=== PATIENT | female | born 1970 | race Caucasian/White ===

== ENCOUNTER → 2018-03-13 16:20 | Outpatient (REF) | payer OTHER, SELFPAY ==
[2018-03-13 18:38] LABS: Basophils # 0.1 K/mm3 (0-0.2); Basophils % 1.6 % (0.1-2.0); Eosinophils # 0.2 K/mm3 (0.0-0.4); Eosinophils % 3.3 % (0.1-12.0); Hematocrit 54.5 % (37.0-47.0); Hemoglobin 17.7 g/dL (12.2-16.2); Lymphocytes # 2.4 K/mm3 (0.7-4.5); Lymphocytes % 33.2 K/mm3 (10-50); Mean Corpuscular HGB Conc 32.4 g/dL (31.8-35.4); Mean Corpuscular Hemoglobin 32.8 pg (27.0-31.2); Mean Platelet Volume 7.8 fl (7.4-10.4); Monocytes # 0.6 K/mm3 (0.1-1.0); Monocytes % 8.7 % (1.7-9.3); Neutrophils # 3.8 K/mm3 (1.8-7.8); Neutrophils % 53.2 % (37.0-80.0); Platelet Count 390 K/mm3 (142-424); Red Cell Distribution Width 12.3 % (11.5-17.5); White Blood Count 7.2 K/mm3 (4.8-10.8)
[2018-03-13 19:23] LABS: Alanine Aminotransferase 21 U/L (12-78); Albumin Level 3.7 gm/dL (3.4-5.0); Albumin/Globulin Ratio 0.9 (1.1-1.8); Alkaline Phosphatase 76 U/L (46-116); Anion Gap 13.1 mEq/L (5-15); Aspartate Amino Transferase 23 U/L (15-37); Bilirubin,Total 0.6 mg/dL (0.2-1.0); Blood Urea Nitrogen 9 mg/dL (7-18); Calcium 9.2 mg/dL (8.5-10.1); Carbon Dioxide 27 mmol/L (21.0-32.0); Chloride 101 mmol/L (98-107); Chol/HDL Ratio 4.7 (1-3.5); Cholesterol 256 mg/dL (140-200); Estimated Glomerular Filt Rate 67 ml/min (>60); GFR (African American) 81 ML/MIN (>60); Globulin 3.9 gm/dl (1.3-3.2); Glucose 85 mg/dL (74-106); HDL Cholesterol 55 mg/dL (29-89); LDL Cholesterol 157 mg/dL (0-130); Potassium 4.1 mmoL/L (3.5-5.1); Sodium 137 mmol/L (136-145); T4 (Thyroxine) 5.8 ug/dl (4.7-13.3); Thyroid Stimulating Hormone 6.45 uIU/ml (0.358-3.740); Total Protein,Serum 7.6 gm/dL (6.4-8.2); Triglycerides 222 mg/dL (30-200); VLDL Cholesterol 44 mg/dL (0-40)
[2018-03-15 16:16] LABS: Vitamin D 25 Hydroxy 27.7 ng/mL (30.0-100.0)
== END ==
LOC: LAB 16:20
PROVIDERS: Visit Provider Physician Assistant
DX: E03.9 Hypothyroidism, unspecified (principal)
CPT/HCPCS: 80053; 80061; 82652; 84436; 84443; 85025

== ENCOUNTER 2021-06-07 09:42 | Emergency (ER) | payer MEDICAID, SELFPAY ==
[2021-06-07 09:45] VITALS: BP 125/86; PULSE 101; RESP 21; TEMP 36.8; O2SAT 98; BMI 20.1
--- NOTE | 2021-06-07 10:04 | HMH.EDUTC ---
[facility] Disposition Clinical Impression: Peritonsillar abscess Disposition: Home, Self-Care Condition on Discharge: Good Instructions: Sore Throat, DI for Peritonsillar Abscess -- Adult Additional Instructions: *Monitor Temp, Over the counter Motrin or Tylenol as directed/as needed Tylenol every 4 hours and Motrin every 6 hours (as long as your family doctor has told you that you can take it) for fever or pain. and straight to ER if unable to lower temp less than 101.0 after medication given *Warm salt water gargles may help to soothe the throat *Throat Lozenges *Warm fluids like tea with honey may help to soothe the throat *Sleep elevated *Humidifier/Vaporizer Take antibiotics as prescribed Start oral steriods tomorrow on 06/08/21 Your throat swab was sent for culture. Those results are typically sent to your primary care. Be sure to follow up in 2-3 days with your family doctor/primary care physician if no improvement so they can review those result and treat if necessary. If you don?t have a primary care doctor, I recommend you get one but in the mean time, you will have to return to a walk in clinic Follow up IMMEDIATELY for new or worsening symptoms or no Noticeable improvement over the next 48-72 hours. 911 for difficulty breathing or swallowing Prescriptions: Amoxicillin/Potassium Clav [Augmentin 875-125 Tablet] 1 tab PO Q12H 10 Days #20 tab Transmission Status: Received by [id number] predniSONE [Prednisone 20mg Tab] 20 mg PO BID #6 tab Transmission Status: Received by [id number] Referrals: Dea Cooper PA [Primary Care Provider] - As needed Sonido Stokes MD [Staff Physician] - Lucy Evans MD [Consulting Physician] - Time of Disposition: 10:43 Medical Decision Making - [place]ay[place] Inquiry Pt receiving controlled substance: No Blayne was queried for this patient: No Vital Signs: 06/07/21 09:45 06/07/21 10:24 Temperature 98.2 F 98.2 F Temperature Source Oral Pulse Rate 101 H Pulse Rate [Right Brachial] 101 H Respiratory Rate 21 21 Blood Pressure 125/86 Blood Pressure [Right Arm] 125/86 Blood Pressure Mean [Right Arm] 99 Blood Pressure Source [Right Arm] Automatic Cuff Blood Pressure Position [Right Arm] Sitting 02 Sat by Pulse Oximetry 98 Oxygen Delivery Method Room Air - Lab Data Lab Results 06/07/21 09:52: Strep Scn Rapid Clinic Negative Orders (Tests/Meds): ED MEDICATIONS Discontinued Medications Generic Name Dose Route Start Last Admin Trade Name Raul PRN Reason Stop Dose Admin Ceftriaxone Sodium 1 gm 06/07/21 10:11 06/07/21 10:23 Ceftriaxone 1gm Vial IM 06/07/21 10:12 1 gm ONCE ONE Administration Protocol Lidocaine HCl 0 ml 06/07/21 10:11 06/07/21 10:23 Lidocaine 1% 5ml Pf Vial IM 06/07/21 10:12 2.1 ml ONCE ONE Administration Methylprednisolone Sodium Succinate 125 mg 06/07/21 10:08 06/07/21 10:24 Methylprednisolone Sod Succ 125mg Vial IM 06/07/21 10:09 125 mg ONCE ONE Administration ORDERS Category Date Time Status Strep Screen Confirmation Stat Micro 06/07/21 09:52 Received Medical Decision Narrative: Discussed transfer to the ED for further evaluation and treatment and patient declined patient agreed to treatment with IM Solu Medrol and Rocephin and will Dc home with Augmentin 875 BID and Prednisone and have patient follow up with PCP or ENT to call tomorrow to get appointment to monitor for improvement Patient able to drink liquids and swallow soft food at this time Spoke with Dr Stokes and informed him of patient and treatment and that patient would be calling for appointment and he agreed [facility] HPI - General Stated complaint: gland swollen sore throat Time Seen by Provider: 06/07/21 10:04 Mode of Arrival: Ambulatory Source of Information: Patient Limitations: No Limitations Description of Symptoms (Recalled from Triage Doc. by RN): PATIENT C/O SORE THROAT X 1 WEEK. STA
[2021-06-07 10:20] LABS: UTC Strep Screen (Rapid) Negative (Negative)
[2021-06-07 10:24] VITALS: BP 125/86; PULSE 101; RESP 21; TEMP 36.8; O2SAT 98
== END 2021-06-07 10:47 | disposition home or self-care (01) ==
PROVIDERS: Emergency Provider Nurse Practitioner; PCP Physician Assistant
DX: J36 Peritonsillar abscess (principal); E03.9 Hypothyroidism, unspecified; E78.5 Hyperlipidemia, unspecified; F17.210 Nicotine dependence, cigarettes, uncomplicated
CPT/HCPCS: 87880; 96372; 99202; G0463

== ENCOUNTER → 2022-09-13 10:02 | Outpatient (CLI) | payer MEDICAID, SELFPAY ==
--- NOTE | 2022-09-13 10:11 | XR_ITS ---
FINAL REPORT CLINICAL HISTORY: left 5th digit fracture FINDINGS: LEFT HAND Three views demonstrate a subacute-chronic fracture of the proximal 5th metacarpal with bony union. No other fracture is identified. The visualized joint spaces are normally aligned. The soft tissues are unremarkable. IMPRESSION: Subacute-chronic fracture of the proximal 5th metacarpal with bony union. Reviewed, Interpreted and Dictated by Hubert Xavier III, MD Transcribed by Suni Haro Authenticated and [facility]
== END ==
PROVIDERS: PCP Physician Assistant; Visit Provider Physician Assistant
DX: S62.607A Fracture of unspecified phalanx of left little finger, initial encounter for closed fracture (principal)
CPT/HCPCS: 73130